=== PATIENT | male | born 1990 | race Two or more races ===

== ENCOUNTER 2017-07-30 09:18 | Emergency (ER) | payer BC ==
[~2017-07-30] VITALS: Ht 175.3 cm; Wt 70.3 kg
[2017-07-30 09:20] VITALS: BP 124/76
--- NOTE | 2017-07-30 09:35 | NUR ---
DR HARRIS AT BEDSIDE FOR EVAL
== END 2017-07-30 10:09 | disposition home or self-care (01) ==
LOC: ER 09:20
DX: J32.9 Chronic sinusitis, unspecified (principal); J45.909 Unspecified asthma, uncomplicated; F10.10 Alcohol abuse, uncomplicated; Z60.2 Problems related to living alone
CPT/HCPCS: 99281; A4606; Z7610; Z7502

== ENCOUNTER 2017-11-29 19:50 | Emergency (ER) | payer BC, MEDICAID, OTHER ==
[~2017-11-29] VITALS: Ht 170.2 cm; Wt 72.6 kg
--- NOTE | 2017-11-29 20:15 | NUR ---
27 yo male bb mother. patient is alert and oriented, C/O abd pain, sharp like 10/10 with nausea x 1 day. patient ambulated to er bed, skin warm and dry, resp even and unlabored. awaiting roders from provider, will conitnue to monitor
[2017-11-29] MEDS ORDERED: MORPHINE SULFATE INJ 4 MG/ML DISP.SYRIN ONE (20:20)
[2017-11-29] MEDS ORDERED: ONDANSETRON HCL/PF 4 MG/2 ML VIAL ONE (20:20)
[2017-11-29] MEDS ORDERED: PANTOPRAZOLE 40 MG VIAL ONE (20:20)
[2017-11-29] MEDS ORDERED: IV NS 0.9% 1,000 ML BAG IV ONE (20:30)
[2017-11-29] MEDS ORDERED: ONDANSETRON HCL/PF 4 MG/2 ML VIAL IV ONE (20:30)
[2017-11-29] MEDS ORDERED: PANTOPRAZOLE 40 MG VIAL IV ONE (20:30)
[2017-11-29] MEDS ORDERED: MORPHINE SULFATE INJ 2 MG/ML DISP.SYRIN IV ONE (20:30)
--- NOTE | 2017-11-29 20:31 | NUR ---
18g left ac iv started, blood sample obtained and sent to lab medicated pt as ordered
[2017-11-29 20:39] LABS: BASOPHILS # (AUTO) 0.1 /CMM (0.0-0.2); BASOPHILS % (AUTO) 0.8 % (0.0-2.0); EOSINOPHILS % (AUTO) 2.9 % (0.0-6.0); HEMATOCRIT 47 % (39-51); LYMPHOCYTES # (AUTO) 1.5 /CMM (0.8-4.8); LYMPHOCYTES % (AUTO) 20.8 % (20.0-44.0); MEAN CORPUSCULAR HEMOGLOBIN 30 PG (26.0-33.0); MEAN CORPUSCULAR HGB CONC 34 g/dl (31.0-36.0); MEAN CORPUSCULAR VOLUME 89 fL (80-96); MONOCYTES # (AUTO) 0.4 /CMM (0.1-1.30); MONOCYTES % (AUTO) 5.4 % (2.0-12.0); NEUTROPHILS # (AUTO) 4.9 /CMM (1.8-8.9); NEUTROPHILS % (AUTO) 70.1 % (43.0-81.0); PLATELET COUNT (AUTO) 203 /CMM (150-450); RDW COEFFICIENT OF VARIATION 12.9 (11.5-15.0); RED BLOOD CELL COUNT(AUTO) 5.34 MIL/uL (4.5-6.0); WHITE BLOOD COUNT (AUTO) 7.1 K/uL (4.3-11.0)
[2017-11-29 21:03] LABS: ALBUMIN 3.8 g/dL (3.4-5.0); BILIRUBIN,DIRECT 0.1 mg/dL (0.0-0.2); BILIRUBIN,TOTAL 0.8 mg/dL (0.2-1.0); CALCIUM, SERUM 9.1 mg/dL (8.5-10.1); CREATININE 0.8 mg/dL (0.6-1.3); POTASSIUM 3.5 mmol/L (3.5-5.1); TOTAL PROTEIN, SERUM 7.2 g/dL (6.4-8.2)
[2017-11-29 21:23] LABS: APPEARANCE,URINE Clear (CLEAR); BILIRUBIN,URINE Negative (NEGATIVE); BLOOD, URINE Negative Ery/uL (NEGATIVE); COLOR,URINE Yellow (YELLOW); KETONES,URINE 15 (NEGATIVE); LEUKOCYTE ESTERASE ,URINE Negative (NEGATIVE); NITRITE, URINE Negative (NEGATIVE); PROTEIN,URINE Negative (NEGATIVE); UGLUCOSE Negative (NEGATIVE)
[2017-11-29 22:03] VITALS: BP 112/69
--- NOTE | 2017-11-29 22:04 | NUR ---
Patient discharged to home in stable condition. Written and verbal after care instructions given. Patient verbalizes understanding of instruction.IV removed. Catheter intact and site benign. Pressure and 4x4 applied to site. No bleeding noted. pt ambulatory with a steady gait VITAL SIGNS WITHIN NORMAL LIMITS.
== END 2017-11-29 22:04 | disposition home or self-care (01) ==
LOC: ER 19:50
DX: R10.84 Generalized abdominal pain (principal); J45.909 Unspecified asthma, uncomplicated
CPT/HCPCS: 36415; 80048; 80076; 81001; 83690; 85025; 96374; 96375; 99284; A4606; C9113; J2270; J2405; J7030; Z7610; 81000-TC

== ENCOUNTER 2018-07-01 09:47 | Emergency (ER) | payer OTHER ==
[~2018-07-01] VITALS: Ht 177.8 cm; Wt 72.6 kg
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
--- NOTE | 2018-07-01 10:04 | NUR ---
DR ELLIOTT AT BEDSIDE FOR EVAL.
--- NOTE | 2018-07-01 11:55 | NUR ---
Patient discharged to home in stable condition. Written and verbal after care instructions given. Patient verbalizes understanding of instruction.
[2018-07-01 11:56] VITALS: BP 121/62
== END 2018-07-01 11:57 | disposition home or self-care (01) ==
LOC: ER 09:49
DX: S90.32XA Contusion of left foot, initial encounter (principal); S80.01XA Contusion of right knee, initial encounter; S60.222A Contusion of left hand, initial encounter; S60.032A Contusion of left middle finger without damage to nail, initial encounter; J45.909 Unspecified asthma, uncomplicated; F10.10 Alcohol abuse, uncomplicated; F19.10 Other psychoactive substance abuse, uncomplicated; Y90.9 Presence of alcohol in blood, level not specified; W18.39XA Other fall on same level, initial encounter; Y93.31 Activity, mountain climbing, rock climbing and wall climbing; Y92.89 Other specified places as the place of occurrence of the external cause; Y99.8 Other external cause status
CPT/HCPCS: 71045-TC; 73130-TC; 73650-TC

== ENCOUNTER 2018-07-17 11:03 | Inpatient (IN) | payer MEDICAID, OTHER ==
[~2018-07-17] VITALS: Ht 177.8 cm; Wt 67.7 kg
--- NOTE | 2018-07-17 11:25 | NUR ---
patient presented to the ER c/o burning sensation chest and throat x 2 days. alert and oriented x 4, verbally responsive. connected to the monitor and pulse ox. kept comfortable. will continue to monitor accordingly.
--- NOTE | 2018-07-17 11:28 | NUR ---
CXR IN PROGRESS AT BS.
[2018-07-17] MEDS ORDERED: ALBU18HF2 INH (11:43)
--- NOTE | 2018-07-17 11:55 | NUR ---
patient wheeled to ct scan.
[2018-07-17 11:56] LABS: BASOPHILS % (AUTO) 0.7 % (0.0-2.0); EOSINOPHILS % (AUTO) 3.7 % (0.0-6.0); HEMATOCRIT 47 % (39-51); HEMOGLOBIN 15.9 g/dL (13.5-17.5); LYMPHOCYTES # (AUTO) 1.3 /CMM (0.8-4.8); LYMPHOCYTES % (AUTO) 27.2 % (20.0-44.0); MEAN CORPUSCULAR HGB CONC 34 g/dl (31.0-36.0); MEAN CORPUSCULAR VOLUME 92 fL (80-96); MONOCYTES # (AUTO) 0.4 /CMM (0.1-1.30); MONOCYTES % (AUTO) 7.5 % (2.0-12.0); NEUTROPHILS # (AUTO) 2.9 /CMM (1.8-8.9); NEUTROPHILS % (AUTO) 60.9 % (43.0-81.0); PLATELET COUNT (AUTO) 212 /CMM (150-450); RED BLOOD CELL COUNT(AUTO) 5.11 MIL/uL (4.5-6.0); WHITE BLOOD COUNT (AUTO) 4.8 K/uL (4.3-11.0)
--- NOTE | 2018-07-17 12:01 | NUR ---
patient came back from ct.
[2018-07-17 12:06] LABS: CALCIUM, SERUM 8.9 mg/dL (8.5-10.1); CARBON DIOXIDE 30 mmol/L (21-32); CHLORIDE 106 mmol/L (98-107); GLUCOSE 74 mg/dL (74-106); POTASSIUM 4.5 mmol/L (3.5-5.1); SODIUM SERUM 141 mmol/L (136-145); UREA NITROGEN, BLOOD 13 mg/dL (7-18)
[2018-07-17 12:12] LABS: ALANINE AMINOTRANSFERASE 18 U/L (12-78); ALBUMIN 3.6 g/dL (3.4-5.0); ALKALINE PHOSPHATASE 110 U/L (46-116); ASPARTATE AMINOTRANSFERASE 16 U/L (15-37); BILIRUBIN,DIRECT 0.1 mg/dL (0.0-0.2); BILIRUBIN,TOTAL 0.4 mg/dL (0.2-1.0); TOTAL PROTEIN, SERUM 6.9 g/dL (6.4-8.2)
--- NOTE | 2018-07-17 12:45 | NUR ---
[facility] paged its andres
--- NOTE | 2018-07-17 13:09 | NUR ---
PAGED EPIC X 2
--- NOTE | 2018-07-17 13:15 | NUR ---
LOUISA KOHLI NP CALLED BACK AND TALKING TO DR DAWN.
--- NOTE | 2018-07-17 13:17 | NUR ---
CALLED DR. CHAPMAN FOR CONSULT
--- NOTE | 2018-07-17 14:46 | NUR ---
PAGED DR RIVER AND SPOKE WITH DR HARRIS.
[2018-07-17] MEDS ORDERED: ONDANSETRON HCL/PF 4 MG/2 ML VIAL ONE (16:14)
[2018-07-17] MEDS ORDERED: MORPHINE SULFATE INJ 4 MG/ML DISP.SYRIN ONE (16:14)
[2018-07-17] MEDS ORDERED: MORPHINE SULFATE INJ 2 MG/ML DISP.SYRIN IV ONE (16:30)
[2018-07-17] MEDS ORDERED: ONDANSETRON HCL/PF 4 MG/2 ML VIAL IVP ONE (16:30)
[2018-07-17] MEDS ORDERED: DIATR MEGLU/DIATRIZOATE SODIUM 120 ML BOTTLE (GASTROGRAPHIN) ONE ×2 (17:35→17:39)
--- NOTE | 2018-07-17 17:36 | NUR ---
patient is going to radilogy department for esophagram.
--- NOTE | 2018-07-17 17:57 | NUR ---
patient came back from radiology.
--- NOTE | 2018-07-17 19:18 | NUR ---
REPORT GIVEN TO TY LYN FOR ANDREA.
--- NOTE | 2018-07-17 19:56 | NUR ---
PAGED [facility] -- RECRUITMENT ADVERTISING MANAGER IS ODALYS SCHULTZ.
[2018-07-17] MEDS ORDERED: IV NS 0.9% 1,000 ML IV PRN (20:13)
--- NOTE | 2018-07-17 20:14 | NUR ---
REPORT GIVEN TO BRENDAN CRAWFORD.
[2018-07-17 20:20] VITALS: BP 108/80
--- NOTE | 2018-07-17 20:20 | NUR ---
FACING BASTER JUMPBASTING ADMISSION NOTES RECEIVED PATIENT FROM ER VIA WHEELCHAIR. PATIENT IS ALERT AND ORIENTED X4, VERBALLY RESPONSIVE, ABLE TO MAKE NEEDS KNOWN. BREATHING EVEN AND UNLABORED. NO SOB NOTED. TOLERATING ROOM AIR. IV ON LEFT AC#18G INTACT AND PATENT. SKIN DRY AND WARM TO TOUCH, AFEBRILE. SKIN CHECK RENDERED - PICTURES TAKEN AND PLACED IN CHART. ORIENTED TO THE USE OF UNIT AMENITIES. BELONGINGS ACCOUNTED FOR, WITH INVENTORY LIST SIGNED. ALL OTHER NEEDS ATTENDED TO. SAFETY MEASURES IN PLACE. CALL LIGHT WITHIN REACH. WILL CONTINUE TO MONITOR.
[2018-07-17] MEDS ORDERED: ALBUTEROL FS 2.5 MG/0.5 ML VIAL.NEB NEB PRN (20:30)
[2018-07-17] MEDS ORDERED: MAGNESIUM HYDROXIDE 30 ML UDC PO PRN (20:30)
[2018-07-17] MEDS ORDERED: ONDANSETRON HCL/PF 4 MG/2 ML VIAL IVP PRN (20:30)
[2018-07-17] MEDS ORDERED: HYDROCODONE/APAP 5/325MG 1 EACH TABLET PO PRN (20:30)
[2018-07-17] MEDS ORDERED: MORPHINE SULFATE INJ 2 MG/ML DISP.SYRIN IV PRN (20:30)
[2018-07-17] MEDS ORDERED: ACETAMINOPHEN 325 MG TABLET PO PRN (20:30)
[2018-07-17] MEDS ORDERED: MAG HYDROX/AL HYDROX/SIMETH 30 ML UDC PO PRN (20:30)
[2018-07-17] MEDS ORDERED: ZOLPIDEM TARTRATE 5 MG TABLET PO PRN (20:30)
[2018-07-18] VITALS: BP_SYST 136; BP_SYST 92; BP_DIAS 43; BP_DIAS 73
[2018-07-18 04:00] VITALS: BP 94/55
[2018-07-18] MEDS ORDERED: IV NS 0.9% 1,000 ML IV ONE (05:00)
--- NOTE | 2018-07-18 05:00 | NUR ---
RN MS NOTES INFORMED DR. MUNIZ REGARDING PATIENT'S LOW BLOOD PRESSURE, 92/43 HR 53 AT MIDNIGHT AND 94/55 HR 53 DESPITE LEGS ELEVATED AND IV NS RUNNING. PER DR. MACKAY, 1 LITER NS IV BOLUS X1 NOW. ORDER NOTED AND CARRIED OUT. WILL CONTINUE TO MONITOR.
[2018-07-18 06:02] VITALS: BP 114/62
[2018-07-18 06:11] LABS: BASOPHILS # (AUTO) 0.1 /CMM (0.0-0.2); BASOPHILS % (AUTO) 1.1 % (0.0-2.0); HEMATOCRIT 44 % (39-51); HEMOGLOBIN 14.8 g/dL (13.5-17.5); LYMPHOCYTES % (AUTO) 36.9 % (20.0-44.0); MEAN CORPUSCULAR HGB CONC 33 g/dl (31.0-36.0); MEAN CORPUSCULAR VOLUME 92 fL (80-96); MONOCYTES # (AUTO) 0.4 /CMM (0.1-1.30); MONOCYTES % (AUTO) 7.6 % (2.0-12.0); NEUTROPHILS # (AUTO) 2.7 /CMM (1.8-8.9); NEUTROPHILS % (AUTO) 49.4 % (43.0-81.0); PLATELET COUNT (AUTO) 210 /CMM (150-450); RED BLOOD CELL COUNT(AUTO) 4.83 MIL/uL (4.5-6.0); WHITE BLOOD COUNT (AUTO) 5.4 K/uL (4.3-11.0)
[2018-07-18 06:24] LABS: ALBUMIN 3.1 g/dL (3.4-5.0); BILIRUBIN,TOTAL 0.2 mg/dL (0.2-1.0); CALCIUM, SERUM 8.3 mg/dL (8.5-10.1); CREATININE 0.8 mg/dL (0.6-1.3); MAGNESIUM 1.9 mg/dL (1.8-2.4); PHOSPHORUS 4.2 mg/dL (2.5-4.9); POTASSIUM 4.8 mmol/L (3.5-5.1); TOTAL PROTEIN, SERUM 5.8 g/dL (6.4-8.2)
--- NOTE | 2018-07-18 06:52 | NUR ---
FIRE CONTROL TECHNICIAN G CLOSING OTES PATIENT RESTING IN BED, IN STABLE CONDITION. BREATHING EVEN AND UNLABORED. NO SOB NOTED. TOLERATING ROOM AIR. NO COMPLAINTS OF PAIN OR DISCOMFORT. NO FACIAL GRIMACING. IV ON LEFT AC#18G INTACT AND PATENT WITH NS RUNNING AT 75ML/HR. SKIN DRY AND WARM TO TOUCH, AFEBRILE. ALL OTHER NEEDS ATTENDED TO. SAFETY MEASURES IN PLACE. CALL LIGHT WITHIN REACH. WILL ENDORSE TO ONCOMING NURSE FOR ANDREA. Addendum: 07/18/18 at 0655 by BRENDAN ECHEVERRIA RN *NOTES
--- NOTE | 2018-07-18 07:20 | NUR ---
RN OPENING NOTES RECEIVED PATIENT IN BED RESTING. A/OX4, ABLE TO MAKE NEEDS KNOWN. NO ACUTE DISTRESS, NO SOB. DENIED PAIN OR DISCOMFORT AT THE MOMENT. IV ACCESS INTACT AND PATENT. KEPT PATIENT SAFE AND COMFORTABLE. BED IN LOW/LOCKED POSITION, SIDERAILS UPX2, CALL LIGHT IN REACH. WILL CONTINUE TO MONITOR ACCORDINGLY.
[2018-07-18 08:00] VITALS: BP 116/69
[2018-07-18] MEDS: PANTOPRAZOLE 40 MG TABLET.DR PO SCH (08:59)
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
[2018-07-18] MEDS ORDERED: HYDROCODONE BIT/HOMATROPINE 5 ML UDC PO PRN (10:00)
--- NOTE | 2018-07-18 10:55 | NUR ---
Social service consult requested by KAMERON Chiu for meth. and alcohol abuse. Pt. is a 28 year old male who was admitted to [facility] for Pneumomediastinum. Pt. has a past medical history of asthma and history of methamphetamine abuse and alcohol abuse. Pt. came to [facility] ED for evaluation of a burning sensation in his chest and in his throat. SW met with pt. bedside. Pt. is alert and oriented x 4. Pt. was sitting up on his bed when SW went to assess. Pt. is cooperative and pleasant with SW during the assessment. Pt. states he is homeless and has been homeless for the past month. Pt. use methamphetamine and alcohol. Pt. last used methamphetamines a few days ago and binged on alcohol for the past three days prior to admission at [facility]. Pt. states he has been drinking alcohol since high school and started using methamphetamines this past year. ALANA offered pt. referrals to drug and alcohol treatment programs, however pt. declined stating, " I have been to [facility] and [facility]." Pt. denies any psychiatric hospitalizations or diagnoses. ALANA offered pt. [facility] and pt. accepted. SW to give pt. list of the [id number] list prior to discharge. Homeless Patient Waiver Form to be signed by pt. at time of discharge. No other social service needs are requested at this time. SW is available, if needed.
[2018-07-18 16:00] VITALS: BP 112/82
--- NOTE | 2018-07-18 19:20 | NUR ---
RN CLOSING NOTES PATIENT IN STABLE CONDITION. ALL NEEDS ATTENDED AND PROVIDED. ALL DUE MEDICATIONS ADMINISTERED ORDERED. KEPT PATIENT SAFE AN COMFORTABLE. BED IN LOW/LOCKED POSITION, SIDERAILS UPX2, CALL LIGHT IN REACH. ENDORSED TO NIGHT RN FOR ANDREA.
--- NOTE | 2018-07-18 19:40 | NUR ---
RN NOTES RECEIVED PATIENT AWAKE SITTING ON BED, FAMILY AT BEDSIDE, NO SIGNS OF ACUTE RESPIRATORY DISTRESS NOTED, ON O2 AT 6LPM VIA MASK, PATIENT REFUSED NASAL CANNULA HE FEELS SUFFOCATED AND CLAIMS HE IS CLAUSTROPHOBIC, EMPHASIZED TO PATIENT THAT HE MUST WEAR THE O2 MASK AT ALL TIMES, FOR PROPER MEDICAL MANAGEMENT AND TREATMENT.
--- NOTE | 2018-07-18 19:41 | NUR ---
RN NOTES ALL NEEDS ATTENDED, ALL SAFETY MEASURES IN PLACED, KEPT COMFORTABLE, DENIES ANY PAIN OR DISCOMFORT AT THIS TIME, WILL MONITOR ACCORDINGLY.
[2018-07-18 20:29] VITALS: BP 112/74
--- NOTE | 2018-07-19 07:30 | NUR ---
received pt. alert and oriented x3,quiet,hep lock in place. vs stable.
[2018-07-19 08:00] VITALS: BP 117/75
--- NOTE | 2018-07-19 08:24 | NUR ---
RN NOTES ALL NEEDS ATTENDED AND MET, ENDORSED TO AM NURSE FOR CONTINUITY OF CARE.
[2018-07-19] MEDS: PANTOPRAZOLE 40 MG TABLET.DR PO SCH (09:03)
--- NOTE | 2018-07-19 09:30 | NUR ---
no change in status.
--- NOTE | 2018-07-19 10:35 | NUR ---
dr. parker.dr. madison in to see pt. dc order given,dc instructions given to pt.very anxious to leave,rn in to rm. to find pt. removed hep lock.bandage to site.all papers signed.belonging sheet signed,escorted to lobby by unclaimed property officer.pt. aware to follow up with private md.
--- NOTE | 2018-07-19 11:32 | NUR ---
ALANA received a call from case sealer Zenia Joshua that pt. is being discharged today. SW went to meet with pt. bedside to offer homeless resources, however was informed by LUZ ELENA Mehta that pt. left in a hurry stating his mother is picking him up. SW was unable to give resources and have pt. sign Homeless Patient Waiver form.
--- NOTE | 2018-07-19 16:55 | NUR ---
received call from pt,s mom-states he is not home.mother informed that pt.( her son) told rn that mom was meeting him at the hospital.rn informed mom that pt. understood instructions and left hospital safely.
== END 2018-07-19 11:02 | disposition home or self-care (01) | DRG 143 ==
LOC: ER 11:03 → MED 20:08 → TELE 20:47 → MED 07-18 08:48
PROVIDERS: ADMIT Nurse Practitioner Acute Care; ATTEND Family Medicine
PROC: BD11ZZZ Fluoroscopy of Esophagus (ICD-10-PCS; principal; 2018-07-17)
DX: J98.2 Interstitial emphysema (principal); F10.10 Alcohol abuse, uncomplicated; J45.909 Unspecified asthma, uncomplicated; F15.10 Other stimulant abuse, uncomplicated; Z87.891 Personal history of nicotine dependence
CPT/HCPCS: 36415; 71045-TC; 71250-TC; 74230-TC; 80048-TC; 80053-TC; 80061-TC; 80076-TC; 83735-TC; 84100-TC; 84484-TC; 85025-TC; 87081-TC; G0378; J2270; J2405; J7030; Q9963

== ENCOUNTER 2019-07-19 12:27 | Emergency (ER) | payer MEDICAID ==
[~2019-07-19] VITALS: Ht 172.7 cm; Wt 77.1 kg
[~2019-07-19 12:27] MED LIST: ALBU18HF2 INH
[2019-07-19 12:42] VITALS: BP 111/69
--- NOTE | 2019-07-19 12:59 | NUR ---
Patient discharged to home in stable condition. Written and verbal after care instructions given. Patient verbalizes understanding of instruction.
== END 2019-07-19 13:08 | disposition home or self-care (01) ==
LOC: ER 12:27
DX: J45.909 Unspecified asthma, uncomplicated (principal); F15.10 Other stimulant abuse, uncomplicated; F19.10 Other psychoactive substance abuse, uncomplicated; F10.10 Alcohol abuse, uncomplicated; F17.200 Nicotine dependence, unspecified, uncomplicated; Y90.9 Presence of alcohol in blood, level not specified; Z79.899 Other long term (current) drug therapy

== ENCOUNTER 2021-06-10 11:53 | Emergency (ER) | payer BC, MEDICAID ==
[~2021-06-10] VITALS: Ht 172.7 cm; Wt 95.3 kg
--- NOTE | 2021-06-10 12:04 | NUR ---
PT BIBMOTHER C/O ADBOMINAL PAIN 6HRS, RT LWER BACK PAIN LAST NIGHT, SCROTUM PAIN STARTED YESTERDAY. PT A/OX4 TOLERATING R/A WELL WITH NO SOB.
--- NOTE | 2021-06-10 12:09 | NUR ---
UNABLE TO PROVIDE URINE AT THIS TIME
[2021-06-10 13:28] LABS: BILIRUBIN,URINE NEGATIVE (NEGATIVE); COLOR,URINE YELLOW (YELLOW); LEUKOCYTE ESTERASE ,URINE NEGATIVE (NEGATIVE); NITRITE, URINE NEGATIVE (NEGATIVE); PH,URINE 7.5 (5.0-8.0); PROTEIN,URINE NEGATIVE (NEGATIVE); UGLUCOSE NEGATIVE (NEGATIVE); UROBILINOGEN,URINE 0.2 EU/dL (0.2)
--- NOTE | 2021-06-10 13:28 | NUR ---
US TECH AT PT'S BEDSIDE
[2021-06-10] MEDS ORDERED: ACETAMINOPHEN 325 MG TABLET PO ONE (13:30)
[2021-06-10] MEDS ORDERED: ACETAMINOPHEN 325 MG TABLET ONE (13:39)
[2021-06-10 14:01] LABS: RBC,URINE 81-100 /HPF (0-2)
[2021-06-10 14:02] LABS: BACTERIA,URINE Few /HPF (None Seen); SQUAMOUS EPITHELIAL CELL,UR Rare /HPF (None Seen); WBC,URINE 0-2 /HPF (0-3)
[2021-06-10 14:03] LABS: URINE AMORPHOUS PHOSPHATES Moderate /HPF (None Seen)
[2021-06-10] MEDS ORDERED: IBUP-1953 PO (15:04)
--- NOTE | 2021-06-10 15:41 | NUR ---
Patient discharged to home in stable condition. RX Written and verbal after care instructions given. Patient verbalizes understanding of instruction. PT ambulatory with a steady gait
[2021-06-10 15:42] VITALS: BP 130/74
== END 2021-06-10 15:42 | disposition home or self-care (01) ==
LOC: ER 11:55
DX: N50.82 Scrotal pain (principal); J45.909 Unspecified asthma, uncomplicated; F20.9 Schizophrenia, unspecified; F17.200 Nicotine dependence, unspecified, uncomplicated; Z79.899 Other long term (current) drug therapy
CPT/HCPCS: 76870-TC; 81001

== ENCOUNTER 2021-06-12 04:50 | Emergency (ER) | payer BC ==
[~2021-06-12] VITALS: Ht 170.2 cm; Wt 97.5 kg
[~2021-06-12 04:50] MED LIST changes: +IBUP-1953 PO
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
[2021-06-12 06:43] LABS: BASOPHILS % (AUTO) 0.3 % (0.0-2.0); EOSINOPHILS % (AUTO) 1.4 % (0.0-6.0); HEMATOCRIT 48 % (39-51); HEMOGLOBIN 16.4 g/dL (13.5-17.5); LYMPHOCYTES # (AUTO) 1.6 K/uL (0.8-4.8); MEAN CORPUSCULAR HGB CONC 34 g/dl (31.0-36.0); MEAN CORPUSCULAR VOLUME 89 fL (80-96); MONOCYTES # (AUTO) 0.9 K/uL (0.1-1.30); MONOCYTES % (AUTO) 7.9 % (2.0-12.0); NEUTROPHILS # (AUTO) 8.2 K/uL (1.8-8.9); NEUTROPHILS % (AUTO) 75.4 % (43.0-81.0); PLATELET COUNT (AUTO) 225 K/uL (150-450); RED BLOOD CELL COUNT(AUTO) 5.39 MIL/uL (4.5-6.0); WHITE BLOOD COUNT (AUTO) 10.9 K/uL (4.3-11.0)
[2021-06-12 06:45] LABS: CALCIUM, SERUM 8.9 mg/dL (8.5-10.1); CREATININE 1.1 mg/dL (0.6-1.3); POTASSIUM 3.9 mmol/L (3.5-5.1)
[2021-06-12 06:50] LABS: ALBUMIN 4.3 g/dL (3.4-5.0); BILIRUBIN,DIRECT 0.1 mg/dL (0.0-0.2); BILIRUBIN,TOTAL 0.5 mg/dL (0.2-1.0); TOTAL PROTEIN, SERUM 8.1 g/dL (6.4-8.2)
[2021-06-12] MEDS ORDERED: TAMS-12 PO (07:12)
[2021-06-12] MEDS ORDERED: HYDR-4303 PO (07:12)
--- NOTE | 2021-06-12 07:22 | NUR ---
Patient discharged to home in stable condition. Written and verbal after care instructions given. Patient verbalizes understanding of instruction.
[2021-06-12 07:23] VITALS: BP 138/71
[2021-06-12 08:18] LABS: BILIRUBIN,URINE NEGATIVE (NEGATIVE); COLOR,URINE YELLOW (YELLOW); LEUKOCYTE ESTERASE ,URINE NEGATIVE (NEGATIVE); NITRITE, URINE NEGATIVE (NEGATIVE); PROTEIN,URINE NEGATIVE (NEGATIVE); UGLUCOSE NEGATIVE (NEGATIVE); UROBILINOGEN,URINE 0.2 EU/dL (0.2)
[2021-06-12 12:25] LABS: BACTERIA,URINE Few /HPF (None Seen); CALCIUM OXALATE CRYSTALS,UR Moderate /HPF (None Seen); RBC,URINE 21-50 /HPF (0-2); SQUAMOUS EPITHELIAL CELL,UR Rare /HPF (None Seen); WBC,URINE 0-2 /HPF (0-3)
== END 2021-06-12 07:23 | disposition home or self-care (01) ==
LOC: ER 04:50
DX: N20.0 Calculus of kidney (principal); J45.909 Unspecified asthma, uncomplicated; F17.290 Nicotine dependence, other tobacco product, uncomplicated; Z79.1 Long term (current) use of non-steroidal anti-inflammatories (NSAID)
CPT/HCPCS: 36415; 80048-TC; 80076-TC; 81001; 83690-TC; 85025-TC

== ENCOUNTER 2022-02-04 17:56 | Emergency (ER) | payer BC ==
[~2022-02-04] VITALS: Ht 170.2 cm; Wt 61.2 kg
[~2022-02-04 17:56] MED LIST changes: +HYDR-4303 PO; +TAMS-12 PO
[2022-02-04 18:10] VITALS: BP 122/63
[2022-02-04] MEDS ORDERED: TDAP [DIPH/PERTUSSIS/TET] 0.5 ML VIAL IM ONE ×2 (18:30→19:02)
== END 2022-02-04 19:28 | disposition home or self-care (01) ==
LOC: ER 18:05
DX: S91.102A Unspecified open wound of left great toe without damage to nail, initial encounter (principal); J45.909 Unspecified asthma, uncomplicated; W22.8XXA Striking against or struck by other objects, initial encounter; Y93.89 Activity, other specified; Y92.89 Other specified places as the place of occurrence of the external cause; Y99.8 Other external cause status
CPT/HCPCS: 90715

== ENCOUNTER 2022-03-17 16:40 | Emergency (ER) | payer BC ==
[~2022-03-17] VITALS: Ht 175.3 cm; Wt 68.9 kg
[2022-03-17 17:05] VITALS: BP 122/76
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
[2022-03-17] MEDS ORDERED: IBUP-1955 PO (18:36)
--- NOTE | 2022-03-17 18:49 | NUR ---
Patient discharged to home in stable condition. Written and verbal after care instructions given. Patient verbalizes understanding of instruction.
== END 2022-03-17 18:49 | disposition home or self-care (01) ==
LOC: ER 16:49
DX: S46.012A Strain of muscle(s) and tendon(s) of the rotator cuff of left shoulder, initial encounter (principal); J45.909 Unspecified asthma, uncomplicated; F20.9 Schizophrenia, unspecified; F17.200 Nicotine dependence, unspecified, uncomplicated; Z79.899 Other long term (current) drug therapy; V87.8XXA Person injured in other specified noncollision transport accidents involving motor vehicle (traffic), initial encounter; Y93.89 Activity, other specified; Y92.89 Other specified places as the place of occurrence of the external cause; Y99.8 Other external cause status
CPT/HCPCS: 73030-TC